=== PATIENT | male | born 1990 | race Caucasian/White ===

== ENCOUNTER → 2023-07-21 08:06 | Outpatient (CLI) | payer OTHER, SELFPAY ==
--- NOTE | 2023-07-21 08:51 | DI.MRI.S_ITS ---
PROCEDURE: MR HAND LT WO CON INDICATIONS: PAIN IN LEFT HAND TECHNIQUE: Noncontrast coronal T1 spin echo and T2 fast spin echo with fat saturation, axial proton density fast spin echo and T2 fast spin echo with fat saturation, sagittal T1 spin echo and STIR through the hand and fingers. COMPARISON: None. FINDINGS: Image quality: Excellent. Bones: The bones are normally aligned, without marrow contusions or fractures. No intra-osseous lesions. Type 2 lunate is seen with focal cartilage loss at the hamatolunate articulation. Soft tissues: The visualized flexor and extensor tendons are intact. Visualized muscles demonstrate normal bulk and internal signal. No intramuscular masses identified. No ganglion cysts. IMPRESSION: No acute trabecular bone injury. No significant ligament or tendon injury is seen in the hand. Approved by: Jez Myles M.D. on 07/21/2023 at 14:05
== END ==
PROVIDERS: Referring Provider Preventive Medicine Aerospace Medicine; Visit Provider Preventive Medicine Aerospace Medicine
DX: M79.642 Pain in left hand (principal)
CPT/HCPCS: 73218